=== PATIENT | male | born 1930 | race African-American/Black ===

== ENCOUNTER 2018-04-20 17:29 | Inpatient (IN) | payer MEDICARE, BC ==
[2018-04-20 19:35] LABS: #Eosinphils 0.1 thou/uL (0.0-0.7); #Lymphocytes 1.1 thou/uL (1.20-3.40); #Monocytes 1.3 thou/uL (0.11-0.59); #Neutrophils 6.4 thou/uL (1.40-6.50); %Basophils 0.1 % (0.0-1.0); %Eosinophils 1.4 % (0.0-10.0); %Lymphocytes 12.3 % (21.0-51.0); %Monocytes 14.4 % (0.0-10.0); %Neutrophils 71.8 % (42.0-75.0); Hemoglobin 10.6 g/dL (14.0-18.0); Mean Corpuscular HGB CONC 31.8 g/dL (32.0-36.0); Mean Corpuscular Hemoglobin 33.7 pg (27.0-31.0); Mean Platelet Volume 8.2 fL (7.4-10.4); Platelet Count 271 thou/uL (130-400); RBC Distribution Width 12.8 % (11.5-14.5); Red Blood Cell (RBC) Count 3.15 mill/uL (4.70-6.10); White Blood Cell (WBC) Count 8.9 thou/uL (4.8-10.8)
[2018-04-20 19:49] LABS: MDiff Complete? YES; Macrocytosis SLIGHT = 6-15 cells (100X) (0-5/hpf); PLT Morphology Comment Appears Adequate; Polychromasia SLIGHT = 2-3 cells (100X) (0-2/hpf)
[2018-04-20 19:57] LABS: Anion Gap 9 mmol/L (10-20); BUN (Urea Nitrogen) 16 mg/dL (8.4-25.7); Calc. Creatinine Clearance 0 mL/min (70-130); Calcium 9.3 mg/dL (7.8-10.44); Carbon Dioxide 32 mmol/L (23-31); Chloride 107 mmol/L (98-107); Estimated GFR-MDRD Greater than 90; Glucose 124 mg/dL (83-110); Potassium 3.9 mmol/L (3.5-5.1); Sodium 144 mmol/L (136-145)
--- NOTE | 2018-04-20 21:03 | RAD ---
RADIOGRAPH LUMBAR SPINE 3 VIEWS: 04/20/18 HISTORY: 87-year-old male with low back pain and multiple skin lesions over the sacrum and hips. COMPARISON: None. FINDINGS: Large amount of stool in the rectum. Multiple surgical clips in the pelvis. Five lumbar type vertebrae. Vertebral body heights are maintained. Transitional level at lumbosacral junction. Moderate to severe disc space narrowing at lumbosacral junction, at least partially developmental in nature. Moderate disc space narrowing at L3-4. No major spondylolisthesis. IMPRESSION: 1. Status post prostatectomy and iliac chain lymph node dissection. 2. Transitional level at lumbosacral junction. 3. Modest degenerative disc changes. 4. No compression fracture. STNA [] POS: ALMA
[2018-04-20 21:04] LABS: Bilirubin Small (Negative); Blood, Urine Large (Negative); Clarity CLOUDY (Clear); Glucose, Urine (Dipstick) Negative (Negative); Leukocyte Moderate (Negative); Nitrite Negative (Negative); Protein, Urine (Dipstick) 30 mg/dL (Neg-Trace); Specific Gravity, Urine 1.023 (1.002-1.036); pH, Urine 5.5 (5.0-9.0)
[2018-04-20 21:08] LABS: Bacteria/HPF None Seen HPF (None Seen); RBC/HPF GREATER THAN 50-TNTC HPF (0-3); Squamous Epithelial 0-3 HPF (0-3)
[2018-04-20 21:10] LABS: Pathc Cast-AUWi Flag 5.23 (0-2.49); Yeast-AUWi Flag 43.7 (0-25.0)
[2018-04-20 21:18] LABS: Hyaline Casts/LPF 0-3 HYALINE CAST LPF (0-3 Hyaline); Transitional Epithelial 0-3 HPF (0-3)
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
[2018-04-20] MEDS ORDERED: Piperacillin/Tazobactam 3.375 GM VIAL ONE (21:44)
[2018-04-20] MEDS ORDERED: Milk Of Magnesia 30 ML UDCUP PO PRN (23:31)
[2018-04-20] MEDS ORDERED: Bisacodyl 5 MG TAB PO PRN (23:31)
[2018-04-20] MEDS ORDERED: Mag-Al 1200 mg/1200 mg/30 ML UDCUP PO PRN (23:31)
[2018-04-20] MEDS ORDERED: Acetaminophen 325 MG TAB PO PRN (23:31)
[2018-04-21] MEDS: Sodium Chloride 0.9% 1,000 ML IV SCH ×2 (00:49→16:36)
--- NOTE | 2018-04-21 02:02 | PDOC.EVN ---
Event Note - Event Note Event Note: Advanced care planning was discussed in detail with the patient's daughter during the admission interview. The discussion was in reference to his advanced dementia,severe decubitus ulcers, and malnutrition and recent rapid decline in his overall condition. His daughter says she has considered Hospice care for her father but did not feel he was quite" at that stage yet". She has discussed this with Dr. Alejandro as well. She says she is aware of his condition, and the overall poor prognosis. We also discussed code status, and she would like for her father to remain a FULL CODE. She says she would not want him on prolonged life support however. She would like to see if his decubitus ulcers will stabilize, and if not then she will consider Hospice. ACP time 20minutes.
[2018-04-21] MEDS: Piperacillin/Tazobactam 2.25 GM in Sodium Chloride 0.9% 100 ML IVPB SCH ×4 (04:30→22:16)
[2018-04-21 04:55] LABS: ALT (SGPT) 12 U/L (8-55); AST (SGOT) 19 U/L (5-34); Albumin 1.9 g/dL (3.4-4.8); Alkaline Phosphatase 77 U/L (40-150); Anion Gap 8 mmol/L (10-20); BUN (Urea Nitrogen) 15 mg/dL (8.4-25.7); Bilirubin, Total 0.8 mg/dL (0.2-1.2); Calc. Creatinine Clearance 66 mL/min (70-130); Calcium 9.3 mg/dL (7.8-10.44); Carbon Dioxide 33 mmol/L (23-31); Chloride 109 mmol/L (98-107); Estimated GFR-MDRD Greater than 90; Globulin 4.1 g/dL (2.4-3.5); Glucose 112 mg/dL (83-110); Sodium 146 mmol/L (136-145)
--- NOTE | 2018-04-21 05:24 | HP ---
PRIMARY CARE PHYSICIAN: Dr. Nathan Alejandro. CHIEF COMPLAINT: Worsening decubitus ulcers. HISTORY OF PRESENT ILLNESS: Mr. Monsalve has advanced dementia and is unable to give any history. He is essentially noncommunicative. His daughter is at the bedside and is the historian. She says that Nancy Monsalve developed decubitus ulcers back in February and since then he has been getting home health where t hey have come in and perform dressing changes twice every other day. She says that back in March, the wounds started to get worse and then on Tuesday, they got worse and very rapidly. She says that they developed an eschar and an odor and she brought him in to see his primary care physician. His prima ry care physician was concerned that there could be infection to the bone and recommended that he com e to the emergency room for evaluation. In the ER, he was found to have several large decubitus ulce rs, which have a dark eschar on them and are essentially unstageable primarily on the bony prominence s in the pelvic region, on the sacrum and lower back and ischiums. He is being admitted for further evaluation. The patient's daughter says that there has not been any fevers or chills that he is awar e of. He has maintained a good appetite, but she says he has rapidly lost weight in the last few tue. She says that the level of dementia is about the same, he sometimes has good days and bad days, and up until recently, they were able to sit up in the chair and he seemed to be more or less comfor table. She says that Dr. Alejandro had discussed hospice with her before, but she decided on home [facility] hospital because she did not think that he was quite that far advanced. REVIEW OF SYSTEMS: Unobtainable as the patient has advanced dementia. PAST MEDICAL HISTORY: Significant for dementia, prostate cancer. He has severe vision impairment an d blindness and hypertension. PAST SURGICAL HISTORY: He has had a prostatectomy, bilateral eye surgeries. ALLERGIES: No known drug allergies. SOCIAL HISTORY: He is a nonsmoker, nondrinker. He lives with his daughter. CODE STATUS: FULL CODE; however, if he were on life support for a certain amount of time, then they would consider withdrawing care, but he is a FULL CODE. FAMILY HISTORY: Significant for diabetes mellitus and cerebrovascular disease. MEDICATIONS: Include terazosin 2 mg at bedtime, Aleve, levobunolol, prednisolone, and brimonidine ey edrops. PHYSICAL EXAMINATION: GENERAL: He is awake. He appears cachectic. He is extremely thin. He is not oriented or we are un able to assess orientation due to advanced dementia. VITAL SIGNS: On admission, the blood pressure was 125/56, heart rate 87, respiratory rate of 16, and he is afebrile. HEENT: The pupils are actually large and sluggishly reactive. He has some mild exudate in the eyes, but no conjunctival injection and the sclerae are anicteric. Throat: He has poor dentition and dry mucous membranes. NECK: No adenopathy, no bruits. LUNGS: Clear to auscultation. There is no wheezing, no rales. CARDIOVASCULAR: He has a normal S1, S2. There was no S3 or S4. No murmurs, clicks or rubs. ABDOMEN: Soft, nontender, nondistended. Positive for bowel sounds. EXTREMITIES: He has got severe muscle wasting. There is no edema except on the dorsum of the feet a nd he has got large decubitus ulcers on both of the ischiums as well as the sacral area and on both h eels, all of which have dark eschar. He also has some contractures of the lower extremities. NEUROLOGIC: He is very difficult to assess due to the advanced dementia, but he does move all of his extremities. LABORATORY AND DIAGNOSTIC DATA: White blood cell count was 8.9, hemoglobin 10.6, hematocrit is 33.3, platelet count is 271,000. Sodium 144, potassium 3.9, chloride is 107, CO2 is 32, BUN of 10, creati nine is 0.59, glucose is 124. Urinalysis shows large blood, moderate leukocyte esterase, too numerou s to count wbc's. He had an x-ray of the pelvis showing some mild osteoarthrosis of both hips and a large amount of stool throughout the colon. There are no gross destructive osseous lesions identifie d. He also had an x-ray of the lumbar spine, showing some degenerative disk changes. ASSESSMENT AND PLAN: This is a pleasant 87-year-old gentleman who is being admitted for severe decub itus ulcers, which has failed outpatient treatment. He also has significant malnutrition, at least m oderate malnutrition, as well as advanced dementia. He will be evaluated by Wound Care. We will als o get a CT scan of the pelvis to determine whether or not there is osteomyelitis. He will need a nut ritional consult and will also get an albumin and prealbumin, it is again suspect [id number] malnutrition. The patient's daughter is wondering if the patient would benefit from a skilled nursin g stay for wound care. She says he wanted to try this for a week or two to see if the wounds could b e stabilized and if not, then she would consider hospice. Therefore, we will go ahead and get a case management consult.
[2018-04-21] MEDS ORDERED: Piperacillin/Tazobactam 3.375 GM in Sodium Chloride 0.9% 100 ML IVPB SCH (06:00)
[2018-04-21] MEDS ORDERED: Prevnar 13-Val Conj/PF 0.5 ML SYRINGE IM ONE (09:00)
[2018-04-21] MEDS ORDERED: Famotidine 20 MG TAB PO SCH (09:00)
[2018-04-21] MEDS ORDERED: Vancomycin HCl 1 GM in Premix Bag 1 BAG IVPB SCH ×2 (09:00→21:00)
[2018-04-21] MEDS: Enoxaparin Sodium 30 MG/0.3 ML SYRINGE SC SCH (09:06)
[2018-04-21 09:25] VITALS: BMI 16.2
--- NOTE | 2018-04-21 09:37 | CT ---
CT PELVIS NONCONTRAST: HISTORY: Decubitus ulcer. Possible osteomyelitis. COMPARISON: 05/02/14. FINDINGS: Osseous structures are demineralized. Mild degenerative changes of the hips. More prominent degener ative changes lower lumbar spine. No aggressive osseous destruction is apparent. Bulky osteophytosi s about the sacroiliac joints. Metallic clips in the pelvis have the appearance of prior prostate clemons rgery. Urinary bladder is incompletely distended. The abdomen was not imaged. A large amount of stool is apparent within the colon and rectum. There is fecal distention of the rectum of 2.84 cm. Rectal wall is somewhat thickened considering the degr ee of distention. Small pockets of gas are present throughout the circumference of the rectal wall. Stranding throughout the subcutaneous tissues precludes adequate evaluation for ulceration. No signi ficant fluid pockets are apparent. IMPRESSION: 1. No aggressive osseous obstruction to suggest advanced osteomyelitis. MRI would be more sensitive if needed for evaluation of bone marrow edema. 2. Osteoporosis. Osteoarthritis. 3. Fecal distention of the rectum with wall thickening and pneumatosis. Clinical correlation regard ing other signs and symptoms of stercoral proctitis is required. POS: ALMA
[2018-04-21] MEDS: Famotidine 20 MG TAB PO SCH (22:14)
[2018-04-22] MEDS: Sodium Chloride 0.9% 1,000 ML IV SCH ×2 (05:05→18:25)
[2018-04-22] MEDS: Piperacillin/Tazobactam 2.25 GM in Sodium Chloride 0.9% 100 ML IVPB SCH ×2 (05:06→10:00)
[2018-04-22] MEDS: Enoxaparin Sodium 30 MG/0.3 ML SYRINGE SC SCH (07:55)
[2018-04-22] MEDS: Famotidine 20 MG TAB PO SCH ×2 (07:56→21:04)
--- NOTE | 2018-04-22 12:26 | PDOC.PN ---
- Subjective Encounter Start Date: 04/21/18 Encounter Start Time: 08:00 -: old records requested/rev Pt seen and examined,chart reviewe din its entirety, thsi is my first visit with this patient. Pt not conversive at all. no acute events, no family at bedside at present no F/C, no N/V/d/c, no CP, no distress - Objective Resuscitation Status: Resuscitation Status FULL:Full Resuscitation MAR Reviewed: Yes Vital Signs & Weight: Vital Signs (12 hours) Temp Pulse Resp BP Pulse Ox 04/22/18 08:00 97.7 F 86 20 96 04/22/18 07:12 97.7 F 86 20 127/73 94 L Weight Admit Weight 106 lb 8 oz Weight 106 lb 8 oz I&O: 04/21/18 04/22/18 04/23/18 06:59 06:59 06:59 Intake Total 800 1055 240 Output Total 1 2 Balance 799 1053 240 Result Diagrams: 04/20/18 19:23 04/21/18 04:15 Radiology Reviewed by me: Yes EKG Reviewed by me: Yes Phys Exam - Physical Examination Constitutional: NAD cachectic, frail, non-talking, contracted HEENT: PERRLA, moist MMs, sclera anicteric Neck: no nodes, no JVD, supple, full ROM Respiratory: no wheezing, no rales, no rhonchi, clear to auscultation bilateral Cardiovascular: RRR, no significant murmur, no rub Gastrointestinal: soft, non-tender, no distention, positive bowel sounds Musculoskeletal: no edema, pulses present Lymphatic: no nodes Skin: no rash, normal turgor, cap refill <2 seconds Dx/Plan (1) 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 (2) Moderate protein-calorie malnutrition Code(s): E44.0 - MODERATE PROTEIN-CALORIE MALNUTRITION Status: Chronic (3) Pressure ulcer of hip, left, unstageable Code(s): L89.220 - PRESSURE ULCER OF LEFT HIP, UNSTAGEABLE Status: Chronic (4) Pressure ulcer of hip, right, unstageable Code(s): L89.210 - PRESSURE ULCER OF RIGHT HIP, UNSTAGEABLE Status: Chronic (5) Encephalopathy Code(s): G93.40 - ENCEPHALOPATHY, UNSPECIFIED Status: Acute (6) Dementia Code(s): F03.90 - UNSPECIFIED DEMENTIA WITHOUT BEHAVIORAL DISTURBANCE Status: Chronic Qualifiers: Dementia type: unspecified type Dementia behavioral disturbance: without behavioral disturbance Qualified Code(s): F03.90 - Unspecified dementia without behavioral disturbance (7) Hypertension Code(s): I10 - ESSENTIAL (PRIMARY) HYPERTENSION Status: Chronic Qualifiers: Hypertension type: essential hypertension Qualified Code(s): I10 - Essential (primary) hypertension - Plan cont current plan of care, plan discussed w/ family * . local wound care, IV fluids, deitary consult. EHR to see if qualifies for inpatient status
--- NOTE | 2018-04-22 12:34 | PDOC.PN ---
- Subjective Encounter Start Date: 04/22/18 Encounter Start Time: 10:00 Pt answering some questions with repeated questioning, Oriented ot perosn only. Ate 50% of meal. Wound care in progress. Pt changed to inpatient status - Objective Resuscitation Status: Resuscitation Status FULL:Full Resuscitation MAR Reviewed: Yes Vital Signs & Weight: Vital Signs (12 hours) Temp Pulse Resp BP Pulse Ox 04/22/18 08:00 97.7 F 86 20 96 04/22/18 07:12 97.7 F 86 20 127/73 94 L Weight Admit Weight 106 lb 8 oz Weight 106 lb 8 oz I&O: 04/21/18 04/22/18 04/23/18 06:59 06:59 06:59 Intake Total 800 1055 240 Output Total 1 2 Balance 799 1053 240 Result Diagrams: 04/20/18 19:23 04/21/18 04:15 Phys Exam - Physical Examination Constitutional: NAD HEENT: PERRLA, moist MMs, sclera anicteric, TM's clear Neck: no nodes, no JVD, supple, full ROM Respiratory: no wheezing, no rales, no rhonchi, clear to auscultation bilateral Cardiovascular: RRR, no significant murmur, no rub Gastrointestinal: soft, non-tender, no distention, positive bowel sounds Musculoskeletal: no edema, pulses present Lymphatic: no nodes Skin: no rash, normal turgor, cap refill <2 seconds Dx/Plan (1) 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 (2) Moderate protein-calorie malnutrition Code(s): E44.0 - MODERATE PROTEIN-CALORIE MALNUTRITION Status: Chronic (3) Pressure ulcer of hip, left, unstageable Code(s): L89.220 - PRESSURE ULCER OF LEFT HIP, UNSTAGEABLE Status: Chronic (4) Pressure ulcer of hip, right, unstageable Code(s): L89.210 - PRESSURE ULCER OF RIGHT HIP, UNSTAGEABLE Status: Chronic (5) Encephalopathy Code(s): G93.40 - ENCEPHALOPATHY, UNSPECIFIED Status: Acute (6) Dementia Code(s): F03.90 - UNSPECIFIED DEMENTIA WITHOUT BEHAVIORAL DISTURBANCE Status: Chronic Qualifiers: Dementia type: unspecified type Dementia behavioral disturbance: without behavioral disturbance Qualified Code(s): F03.90 - Unspecified dementia without behavioral disturbance (7) Hypertension Code(s): I10 - ESSENTIAL (PRIMARY) HYPERTENSION Status: Chronic Qualifiers: Hypertension type: essential hypertension Qualified Code(s): I10 - Essential (primary) hypertension - Plan cont current plan of care, plan discussed w/ family, PT/OT, psychiatric social worker * . stop abx, no osteo. no abscess. wound do not look infected. Need enzymatic and or sharp debridement.
[2018-04-23] MEDS: Sodium Chloride 0.9% 1,000 ML IV SCH (00:17)
[2018-04-23 05:40] LABS: #Lymphocytes 0.9 thou/uL (1.20-3.40); #Monocytes 0.9 thou/uL (0.11-0.59); #Neutrophils 5.2 thou/uL (1.40-6.50); %Basophils 0.2 % (0.0-1.0); %Eosinophils 0.6 % (0.0-10.0); %Lymphocytes 12.6 % (21.0-51.0); %Monocytes 12.9 % (0.0-10.0); %Neutrophils 73.7 % (42.0-75.0); Hemoglobin 9.1 g/dL (14.0-18.0); Mean Corpuscular HGB CONC 31.7 g/dL (32.0-36.0); Mean Corpuscular Hemoglobin 32.9 pg (27.0-31.0); Mean Platelet Volume 7.5 fL (7.4-10.4); Platelet Count 261 thou/uL (130-400); RBC Distribution Width 12.7 % (11.5-14.5); Red Blood Cell (RBC) Count 2.78 mill/uL (4.70-6.10)
[2018-04-23 06:01] LABS: ALT (SGPT) 8 U/L (8-55); AST (SGOT) 13 U/L (5-34); Albumin 1.8 g/dL (3.4-4.8); Alkaline Phosphatase 64 U/L (40-150); Anion Gap 8 mmol/L (10-20); BUN (Urea Nitrogen) 12 mg/dL (8.4-25.7); Bilirubin, Total 0.6 mg/dL (0.2-1.2); Calc. Creatinine Clearance 70 mL/min (70-130); Calcium 8.4 mg/dL (7.8-10.44); Carbon Dioxide 28 mmol/L (23-31); Chloride 108 mmol/L (98-107); Estimated GFR-MDRD Greater than 90; Globulin 3.7 g/dL (2.4-3.5); Glucose 89 mg/dL (83-110); Magnesium 1.8 mg/dL (1.6-2.6); Potassium 3.4 mmol/L (3.5-5.1); Protein, Total 5.5 g/dL (5.8-8.1); Sodium 141 mmol/L (136-145)
[2018-04-23] MEDS ORDERED: VANCOMYCIN IVPB PRN (08:50)
[2018-04-23] MEDS ORDERED: hydrALAZINE 20 MG/ML VIAL SLOW IVP PRN (08:51)
[2018-04-23] MEDS ORDERED: Diabetic Tussin 200 MG/10 ML UDCUP PO PRN (08:51)
[2018-04-23] MEDS ORDERED: Eucerin (Mineral Oil/Petrolatum,White) 30 gm Jar TOP PRN (08:51)
[2018-04-23] MEDS ORDERED: Artificial Tears 18 DROP/0.9 ML EA EYE PRN (08:51)
[2018-04-23] MEDS ORDERED: Loperamide HCl 2 MG CAP PO PRN (08:51)
[2018-04-23] MEDS ORDERED: Loratadine 10 MG TAB PO PRN (08:51)
[2018-04-23] MEDS ORDERED: Ondansetron HCl/PF 4 MG/2 ML Vial IVP PRN (08:51)
[2018-04-23] MEDS ORDERED: Ondansetron ODT 4 MG TAB PO PRN (08:51)
[2018-04-23] MEDS ORDERED: Chloraseptic Spray 180 ml Bottle PO PRN (08:51)
[2018-04-23] MEDS ORDERED: Temazepam 15 MG CAP PO PRN (08:51)
[2018-04-23] MEDS ORDERED: Sodium Chloride 0.65% Nasal 44 ML BOT EA NARE PRN (08:51)
[2018-04-23] MEDS: Famotidine 20 MG TAB PO SCH ×2 (09:34→22:04)
[2018-04-23] MEDS: Enoxaparin Sodium 30 MG/0.3 ML SYRINGE SC SCH (09:35)
[2018-04-23] MEDS ORDERED: Potassium Chloride 20 MEQ TAB PO SCH (10:00)
[2018-04-23] MEDS: Saccharomyces boulardii 250 MG CAP PO SCH (10:06)
[2018-04-23] MEDS: Cyanocobalamin (Vitamin B-12) 1,000 MCG TAB PO SCH (10:06)
[2018-04-23] MEDS: HYDROcodone/Acetaminophen 5/325 mg Tablet PO PRN (10:07)
[2018-04-23] MEDS: Folic Acid 1 MG TAB PO SCH (10:07)
[2018-04-23] MEDS: prednisoLONE 1% Ophth Susp 5 ml Bottle EA EYE SCH ×2 (10:14→22:04)
[2018-04-23] MEDS: Brimonidine Tartrate 0.2% Ophth Soln 5 ml Bottle EA EYE SCH ×2 (10:21→22:04)
[2018-04-23] MEDS: Vancomycin HCl 750 MG in Sodium Chloride 0.9% 250 ML 250 ML IVPB SCH (11:34)
[2018-04-23] MEDS: Piperacillin/Tazobactam 2.25 GM in Sodium Chloride 0.9% 100 ML IVPB SCH ×2 (11:40→17:10)
--- NOTE | 2018-04-23 11:52 | PDOC.PN ---
- Subjective Encounter Start Date: 04/23/18 Encounter Start Time: 08:30 -: non-verbal, old records requested/rev Patient seen and examined for infected pressure ulcer. No overnight events - Objective MAR Reviewed: Yes Vital Signs & Weight: Vital Signs (12 hours) Temp Pulse Resp BP Pulse Ox 04/23/18 07:18 97.5 F L 75 16 128/60 97 I&O: 04/22/18 04/23/18 04/24/18 06:59 06:59 06:59 Intake Total 1224 Balance 1224 Result Diagrams: 04/23/18 05:19 04/23/18 05:19 Phys Exam - Physical Examination Constitutional: NAD cachectic HEENT: PERRLA, moist MMs, sclera anicteric Neck: no JVD, supple Respiratory: no wheezing, no rales, no rhonchi Cardiovascular: RRR, no significant murmur, no rub Gastrointestinal: soft, non-tender, no distention, positive bowel sounds Musculoskeletal: no edema, pulses present unable to assess Lymphatic: no nodes Deviation from normal: unable to assess Deviation from normal: decubitus ulcer with dressing Dx/Plan (1) Hypokalemia Code(s): E87.6 - HYPOKALEMIA Status: Acute (2) Dementia Code(s): F03.90 - UNSPECIFIED DEMENTIA WITHOUT BEHAVIORAL DISTURBANCE Status: Chronic Qualifiers: Dementia type: unspecified type Dementia behavioral disturbance: without behavioral disturbance Qualified Code(s): F03.90 - Unspecified dementia without behavioral disturbance (3) 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 (4) Hypertension Code(s): I10 - ESSENTIAL (PRIMARY) HYPERTENSION Status: Chronic Qualifiers: Hypertension type: essential hypertension Qualified Code(s): I10 - Essential (primary) hypertension (5) Macrocytic anemia Code(s): D53.9 - NUTRITIONAL ANEMIA, UNSPECIFIED Status: Chronic (6) Moderate protein-calorie malnutrition Code(s): E44.0 - MODERATE PROTEIN-CALORIE MALNUTRITION Status: Chronic (7) Pressure ulcer of hip, left, unstageable Code(s): L89.220 - PRESSURE ULCER OF LEFT HIP, UNSTAGEABLE Status: Chronic (8) Pressure ulcer of hip, right, unstageable Code(s): L89.210 - PRESSURE ULCER OF RIGHT HIP, UNSTAGEABLE Status: Chronic - Plan cont current plan of care, continue antibiotics, clinical social work therapist * add folic acid, vitamin B12 * replace potassium * continue vancomycin and zosyn * wound care * add supplement with forrest with ensure * medication reviewed as below * symptomatic treatment. Review of Systems - Review of Systems Other: unable to review due to non verbal status - Medications/Allergies Allergies/Adverse Reactions: Allergies Allergy/AdvReac Type Severity Reaction Status Date / Time No Known Drug Allergies Allergy Verified 07/12/14 21:15 Medications: Current Medications Acetaminophen (Tylenol) 650 mg PO Q4H PRN PRN Reason: Headache/Fever or Pain Hydrocodone Bitart/Acetaminophen (Randolph 5/325) 1 tab PO Q4H PRN PRN Reason: Moderate Pain (4-6) Last Admin: 04/23/18 10:07 Dose: 1 tab Al Hydroxide/Mg Hydroxide (Maalox) 30 ml PO Q6H PRN PRN Reason: Heartburn or Indigestion Artificial Tears (Tears Naturale) 0 drop EA EYE PRN PRN PRN Reason: Dry Eyes Bisacodyl (Dulcolax) 10 mg PO DAILYPRN PRN PRN Reason: Constipation Brimonidine Tartrate (Alphagan 0.2% Ophth Soln) 1 drop EA EYE BID [facility] Last Admin: 04/23/18 10:21 Dose: Not Given Cyanocobalamin (Vitamin B-12) 1,000 mcg PO DAILY [facility] Last Admin: 04/23/18 10:06 Dose: 1,000 mcg Enoxaparin Sodium (Lovenox) 30 mg SC 0900 [facility] Last Admin: 04/23/18 09:35 Dose: 30 mg Famotidine (Pepcid) 20 mg PO BID [facility] Last Admin: 04/23/18 09:34 Dose: 20 mg Folic Acid (Folvite) 1 mg PO DAILY [facility] Last Admin: 04/23/18 10:07 Dose: 1 mg Guaifenesin (Robitussin Sf) 200 mg PO Q4H PRN PRN Reason: Cough Hydralazine HCl (Apresoline) 10 mg SLOW IVP Q4H PRN PRN Reason: Systolic BP > 180 Sodium Chloride (Normal Saline 0.9%) 1,000 mls @ 70 mls/hr IV .[id number] [facility] Last Admin: 04/23/18 00:17 Dose: 1,000 mls Piperacillin Sod/Tazobactam (Sod 2.25 gm/ Sodium Chloride) 100 mls @ 200 mls/ hr IVPB Q6HR [facility] Last Admin: 04/23/18 11:40 Dose: 100 mls Vancomycin HCl 750 mg/ Sodium (Chloride) 250 mls @ 250 mls/hr IVPB 1100 [facility] Last Admin: 04/23/18 11:34 Dose: 250 mls Lactulose (Lactulose) 20 gm PO DAILYPRN PRN PRN Reason: Constipation Loperamide HCl (Imodium) 2 mg PO PRN PRN PRN Reason: Diarrhea/Loose Stools Loratadine (Claritin) 10 mg PO DAILYPRN PRN PRN Reason: Sinus Symptoms Magnesium Hydroxide (Milk Of Magnesium) 30 ml PO DAILYPRN PRN PRN Reason: Constipation Mineral Oil/White Petrolatum (Eucerin Cream) 0 gm TOP BIDPRN PRN PRN Reason: Dry Skin Miscellaneous Medication (Pharmacy To Dose) 1 each IVPB DAILYPRN PRN PRN Reason: LABS Ondansetron HCl (Zofran Odt) 4 mg PO Q6H PRN PRN Reason: Nausea/Vomiting Ondansetron HCl (Zofran) 4 mg IVP Q6H PRN PRN Reason: /Vomiting Phenol (Chloraseptic Oxford 180 Ml Bot) 0 ml PO PRN PRN PRN Reason: Sore Throat Potassium Chloride (K-Dur) 40 meq PO 1000 [facility] Stop: 04/23/18 12:00 Last Admin: 04/23/18 10:06 Dose: 40 meq Prednisolone Acetate (Econopred Plus 1% Opth Susp) 1 drop EA EYE BID [facility] Last Admin: 04/23/18 10:14 Dose: 1 drp Saccharomyces Boulardii (Florastor) 250 mg PO DAILY [facility] Last Admin: 04/23/18 10:06 Dose: 250 mg Sodium Chloride (Camas Nasal Oxford 0.65%) 0 ml EA NARE QIDPRN PRN PRN Reason: Nasal Congestion Temazepam (Restoril) 15 mg PO HSPRN PRN PRN Reason: Insomnia Terazosin HCl (Hytrin) 2 mg PO BID-[facility] Timolol Maleate (Timoptic 0.5% Ophth Soln) 1 drop EA EYE BID [facility]
[2018-04-23] MEDS: Terazosin HCl 1 MG CAP PO SCH (17:10)
[2018-04-23] MEDS: Timolol 0.5% Ophth Soln 5 ml Bottle EA EYE SCH (22:05)
[2018-04-24] MEDS: Piperacillin/Tazobactam 2.25 GM in Sodium Chloride 0.9% 100 ML IVPB SCH ×4 (00:44→17:19)
[2018-04-24] MEDS: Sodium Chloride 0.9% 1,000 ML IV SCH ×2 (01:25→09:25)
[2018-04-24] MEDS: Saccharomyces boulardii 250 MG CAP PO SCH (07:48)
[2018-04-24] MEDS: prednisoLONE 1% Ophth Susp 5 ml Bottle EA EYE SCH ×2 (07:50→20:21)
[2018-04-24] MEDS: Famotidine 20 MG TAB PO SCH ×2 (07:51→20:22)
[2018-04-24] MEDS: Cyanocobalamin (Vitamin B-12) 1,000 MCG TAB PO SCH (07:51)
[2018-04-24] MEDS: Folic Acid 1 MG TAB PO SCH (07:53)
[2018-04-24] MEDS: Enoxaparin Sodium 30 MG/0.3 ML SYRINGE SC SCH (07:54)
[2018-04-24] MEDS: Timolol 0.5% Ophth Soln 5 ml Bottle EA EYE SCH ×2 (07:55→20:17)
[2018-04-24] MEDS: Terazosin HCl 1 MG CAP PO SCH ×2 (07:57→17:06)
[2018-04-24] MEDS: Brimonidine Tartrate 0.2% Ophth Soln 5 ml Bottle EA EYE SCH ×2 (08:00→20:26)
[2018-04-24] MEDS: HYDROcodone/Acetaminophen 5/325 mg Tablet PO PRN (10:15)
[2018-04-24] MEDS: Vancomycin HCl 750 MG in Sodium Chloride 0.9% 250 ML 250 ML IVPB SCH (10:16)
--- NOTE | 2018-04-24 10:30 | PDOC.PN ---
- Subjective Encounter Start Date: 04/24/18 Encounter Start Time: 08:30 Patient seen and examined for decubitus ulcer, No overnight events - Objective MAR Reviewed: Yes Vital Signs & Weight: Vital Signs (12 hours) Temp Pulse Resp BP BP Pulse Ox 04/24/18 08:00 98.0 F 87 20 96 04/24/18 07:55 87 118/69 04/24/18 07:11 98.0 F 87 20 118/69 96 I&O: 04/23/18 04/24/18 04/25/18 06:59 06:59 06:59 Intake Total 1224 2790 Balance 1224 2790 Result Diagrams: 04/23/18 05:19 04/23/18 05:19 Phys Exam - Physical Examination Constitutional: NAD HEENT: PERRLA, moist MMs, sclera anicteric Neck: no JVD, supple Respiratory: no wheezing, no rales, no rhonchi Cardiovascular: RRR, no significant murmur, no rub Gastrointestinal: soft, non-tender, no distention, positive bowel sounds Musculoskeletal: no edema, pulses present unable to assess Deviation from normal: unable to assess Deviation from normal: decubitus ulcer with dressing Dx/Plan (1) Hypokalemia Code(s): E87.6 - HYPOKALEMIA Status: Acute (2) Dementia Code(s): F03.90 - UNSPECIFIED DEMENTIA WITHOUT BEHAVIORAL DISTURBANCE Status: Chronic Qualifiers: Dementia type: unspecified type Dementia behavioral disturbance: without behavioral disturbance Qualified Code(s): F03.90 - Unspecified dementia without behavioral disturbance (3) 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 (4) Hypertension Code(s): I10 - ESSENTIAL (PRIMARY) HYPERTENSION Status: Chronic Qualifiers: Hypertension type: essential hypertension Qualified Code(s): I10 - Essential (primary) hypertension (5) Macrocytic anemia Code(s): D53.9 - NUTRITIONAL ANEMIA, UNSPECIFIED Status: Chronic (6) Moderate protein-calorie malnutrition Code(s): E44.0 - MODERATE PROTEIN-CALORIE MALNUTRITION Status: Chronic (7) Pressure ulcer of hip, left, unstageable Code(s): L89.220 - PRESSURE ULCER OF LEFT HIP, UNSTAGEABLE Status: Chronic (8) Pressure ulcer of hip, right, unstageable Code(s): L89.210 - PRESSURE ULCER OF RIGHT HIP, UNSTAGEABLE Status: Chronic - Plan cont current plan of care, continue antibiotics, healthcare social worker * continue current IV antibiotics * wound care * nutritional support * palliative care consult * medication reviewed as below * symptomatic treatment. Review of Systems - Review of Systems Other: unable to review due to his baseline cognitive deficit - Medications/Allergies Allergies/Adverse Reactions: Allergies Allergy/AdvReac Type Severity Reaction Status Date / Time No Known Drug Allergies Allergy Verified 07/12/14 21:15 Medications: Current Medications Acetaminophen (Tylenol) 650 mg PO Q4H PRN PRN Reason: Headache/Fever or Pain Hydrocodone Bitart/Acetaminophen ([place] 5/325) 1 tab PO Q4H PRN PRN Reason: Moderate Pain (4-6) Last Admin: 04/24/18 10:15 Dose: 1 tab Al Hydroxide/Mg Hydroxide (Maalox) 30 ml PO Q6H PRN PRN Reason: Heartburn or Indigestion Artificial Tears (Tears Naturale) 0 drop EA EYE PRN PRN PRN Reason: Dry Eyes Bisacodyl (Dulcolax) 10 mg PO DAILYPRN PRN PRN Reason: Constipation Brimonidine Tartrate (Alphagan 0.2% Ophth Soln) 1 drop EA EYE BID [facility] Last Admin: 04/24/18 08:00 Dose: 1 drop Cyanocobalamin (Vitamin B-12) 1,000 mcg PO DAILY [facility] Last Admin: 04/24/18 07:51 Dose: 1,000 mcg Enoxaparin Sodium (Lovenox) 40 mg SC 0900 [facility] Famotidine (Pepcid) 20 mg PO BID [facility] Last Admin: 04/24/18 07:51 Dose: 20 mg Folic Acid (Folvite) 1 mg PO DAILY [facility] Last Admin: 04/24/18 07:53 Dose: 1 mg Guaifenesin (Robitussin Sf) 200 mg PO Q4H PRN PRN Reason: Cough Hydralazine HCl (Apresoline) 10 mg SLOW IVP Q4H PRN PRN Reason: Systolic BP > 180 Sodium Chloride (Normal Saline 0.9%) 1,000 mls @ 70 mls/hr IV .[id number] [facility] Last Admin: 04/24/18 09:25 Dose: 1,000 mls Piperacillin Sod/Tazobactam (Sod 2.25 gm/ Sodium Chloride) 100 mls @ 200 mls/ hr IVPB Q6HR [facility] Last Admin: 04/24/18 06:04 Dose: 100 mls Vancomycin HCl 750 mg/ Sodium (Chloride) 250 mls @ 250 mls/hr IVPB 1100 [facility] Last Admin: 04/24/18 10:16 Dose: 250 mls Lactulose (Lactulose) 20 gm PO DAILYPRN PRN PRN Reason: Constipation Loperamide HCl (Imodium) 2 mg PO PRN PRN PRN Reason: Diarrhea/Loose Stools Loratadine (Claritin) 10 mg PO DAILYPRN PRN PRN Reason: Sinus Symptoms Magnesium Hydroxide (Milk Of Magnesium) 30 ml PO DAILYPRN PRN PRN Reason: Constipation Mineral Oil/White Petrolatum (Eucerin Cream) 0 gm TOP BIDPRN PRN PRN Reason: Dry Skin Miscellaneous Medication (Pharmacy To Dose) 1 each IVPB DAILYPRN PRN PRN Reason: LABS Ondansetron HCl (Zofran Odt) 4 mg PO Q6H PRN PRN Reason: Nausea/Vomiting Ondansetron HCl (Zofran) 4 mg IVP Q6H PRN PRN Reason: /Vomiting Phenol (Chloraseptic [place] 180 Ml Bot) 0 ml PO PRN PRN PRN Reason: Sore Throat Prednisolone Acetate (Econopred Plus 1% Opth Susp) 1 drop EA EYE BID [facility] Last Admin: 04/24/18 07:50 Dose: 1 drp Saccharomyces Boulardii (Florastor) 250 mg PO DAILY [facility] Last Admin: 04/24/18 07:48 Dose: 250 mg Sodium Chloride ([place] Nasal [place] 0.65%) 0 ml EA NARE QIDPRN PRN PRN Reason: Nasal Congestion Temazepam (Restoril) 15 mg PO HSPRN PRN PRN Reason: Insomnia Terazosin HCl (Hytrin) 2 mg PO BID-[facility] Last Admin: 04/24/18 07:57 Dose: Not Given Timolol Maleate (Timoptic 0.5% Oph Soln) 1 drop EA EYE BID [facility] Last Admin: 04/24/18 07:55 Dose: 1 drop
[2018-04-25] MEDS: Piperacillin/Tazobactam 2.25 GM in Sodium Chloride 0.9% 100 ML IVPB SCH ×5 (00:32→19:53)
[2018-04-25] MEDS: Sodium Chloride 0.9% 1,000 ML IV SCH ×2 (05:39→16:17)
[2018-04-25] MEDS: Cyanocobalamin (Vitamin B-12) 1,000 MCG TAB PO SCH (08:55)
[2018-04-25] MEDS: Terazosin HCl 1 MG CAP PO SCH ×2 (08:55→16:16)
[2018-04-25] MEDS: Folic Acid 1 MG TAB PO SCH (08:55)
[2018-04-25] MEDS: Famotidine 20 MG TAB PO SCH ×2 (08:55→19:52)
[2018-04-25] MEDS: Saccharomyces boulardii 250 MG CAP PO SCH (08:55)
[2018-04-25] MEDS: Enoxaparin Sodium 40 MG/0.4 ML SYRINGE SC SCH (08:55)
[2018-04-25] MEDS: Timolol 0.5% Ophth Soln 5 ml Bottle EA EYE SCH ×2 (09:00→19:53)
[2018-04-25] MEDS: Brimonidine Tartrate 0.2% Ophth Soln 5 ml Bottle EA EYE SCH ×2 (09:00→19:53)
[2018-04-25] MEDS: prednisoLONE 1% Ophth Susp 5 ml Bottle EA EYE SCH ×2 (09:00→19:53)
[2018-04-25 10:23] LABS: #Eosinphils 0.1 thou/uL (0.0-0.7); #Monocytes 0.9 thou/uL (0.11-0.59); #Neutrophils 5.8 thou/uL (1.40-6.50); %Basophils 0.2 % (0.0-1.0); %Eosinophils 1.4 % (0.0-10.0); %Lymphocytes 12.6 % (21.0-51.0); %Monocytes 11.4 % (0.0-10.0); %Neutrophils 74.3 % (42.0-75.0); Hemoglobin 9.8 g/dL (14.0-18.0); Mean Corpuscular HGB CONC 31.9 g/dL (32.0-36.0); Mean Corpuscular Hemoglobin 33.3 pg (27.0-31.0); Mean Platelet Volume 7.1 fL (7.4-10.4); Platelet Count 236 thou/uL (130-400); RBC Distribution Width 12.7 % (11.5-14.5); Red Blood Cell (RBC) Count 2.93 mill/uL (4.70-6.10); White Blood Cell (WBC) Count 7.9 thou/uL (4.8-10.8)
[2018-04-25 10:35] LABS: Vancomycin, Trough 6.8 ug/mL
[2018-04-25 10:37] LABS: Anion Gap 10 mmol/L (10-20); BUN (Urea Nitrogen) 15 mg/dL (8.4-25.7); Calc. Creatinine Clearance 66 mL/min (70-130); Calcium 8.5 mg/dL (7.8-10.44); Carbon Dioxide 26 mmol/L (23-31); Chloride 111 mmol/L (98-107); Estimated GFR-MDRD Greater than 90; Glucose 117 mg/dL (83-110); Potassium 3.7 mmol/L (3.5-5.1); Sodium 143 mmol/L (136-145)
[2018-04-25] MEDS: Vancomycin HCl 750 MG in Sodium Chloride 0.9% 250 ML 250 ML IVPB SCH (11:25)
--- NOTE | 2018-04-25 12:15 | PDOC.PN ---
- Subjective Encounter Start Date: 04/25/18 Encounter Start Time: 07:45 -: non-verbal Patient seen and examined for decubitus ulcer. No new complaints. No overnight events - Objective MAR Reviewed: Yes Vital Signs & Weight: Vital Signs (12 hours) Temp Pulse Resp BP BP Pulse Ox 04/25/18 11:15 97.9 F 83 16 109/63 91 L 04/25/18 09:00 79 109/58 L 04/25/18 08:00 97.9 F 83 16 04/25/18 07:29 97.7 F 79 14 109/58 L 91 L Weight Admit Weight 106 lb 8 oz Weight 106 lb 8 oz I&O: 04/24/18 04/25/18 04/26/18 06:59 06:59 06:59 Intake Total 2790 2840 480 Balance 2790 2840 480 Result Diagrams: 04/25/18 10:10 04/25/18 10:10 Phys Exam - Physical Examination Constitutional: NAD HEENT: PERRLA, moist MMs, sclera anicteric Neck: no JVD, supple Respiratory: no wheezing, no rales, no rhonchi Cardiovascular: RRR, no significant murmur, no rub Gastrointestinal: soft, non-tender, no distention, positive bowel sounds Musculoskeletal: no edema, pulses present unable to assess Lymphatic: no nodes Deviation from normal: unable to assess Deviation from normal: decubitus ulcer with dressing Dx/Plan (1) Hypokalemia Code(s): E87.6 - HYPOKALEMIA Status: Acute (2) Dementia Code(s): F03.90 - UNSPECIFIED DEMENTIA WITHOUT BEHAVIORAL DISTURBANCE Status: Chronic Qualifiers: Dementia type: unspecified type Dementia behavioral disturbance: without behavioral disturbance Qualified Code(s): F03.90 - Unspecified dementia without behavioral disturbance (3) 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 (4) Hypertension Code(s): I10 - ESSENTIAL (PRIMARY) HYPERTENSION Status: Chronic Qualifiers: Hypertension type: essential hypertension Qualified Code(s): I10 - Essential (primary) hypertension (5) Macrocytic anemia Code(s): D53.9 - NUTRITIONAL ANEMIA, UNSPECIFIED Status: Chronic (6) Moderate protein-calorie malnutrition Code(s): E44.0 - MODERATE PROTEIN-CALORIE MALNUTRITION Status: Chronic (7) Pressure ulcer of hip, left, unstageable Code(s): L89.220 - PRESSURE ULCER OF LEFT HIP, UNSTAGEABLE Status: Chronic (8) Pressure ulcer of hip, right, unstageable Code(s): L89.210 - PRESSURE ULCER OF RIGHT HIP, UNSTAGEABLE Status: Chronic - Plan cont current plan of care, plan discussed w/ family, continue antibiotics, director social welfare * continue IV antibiotics in hospital, vancomycin and zosyn * on discharge doxycycline for mrsa wound infection * wound care * nutritional support * medication reviewed as below * symptomatic treatment * discussed with daughter * await placement. Review of Systems - Review of Systems Other: unable to review due to his baseline demented condition - Medications/Allergies Allergies/Adverse Reactions: Allergies Allergy/AdvReac Type Severity Reaction Status Date / Time No Known Drug Allergies Allergy Verified 07/12/14 21:15 Medications: Current Medications Acetaminophen (Tylenol) 650 mg PO Q4H PRN PRN Reason: Headache/Fever or Pain Hydrocodone Bitart/Acetaminophen ([place] 5/325) 1 tab PO Q4H PRN PRN Reason: Moderate Pain (4-6) Last Admin: 04/24/18 10:15 Dose: 1 tab Al Hydroxide/Mg Hydroxide (Maalox) 30 ml PO Q6H PRN PRN Reason: Heartburn or Indigestion Artificial Tears (Tears Naturale) 0 drop EA EYE PRN PRN PRN Reason: Dry Eyes Bisacodyl (Dulcolax) 10 mg PO DAILYPRN PRN PRN Reason: Constipation Brimonidine Tartrate (Alph[place] 0.2% Oph Soln) 1 drop EA EYE BID [facility] Last Admin: 04/25/18 09:00 Dose: 1 drop Cyanocobalamin (Vitamin B-12) 1,000 mcg PO DAILY [facility] Last Admin: 04/25/18 08:55 Dose: 1,000 mcg Enoxaparin Sodium (Lovenox) 40 mg SC 0900 [facility] Last Admin: 04/25/18 08:55 Dose: 40 mg Famotidine (Pepcid) 20 mg PO BID [facility] Last Admin: 04/25/18 08:55 Dose: 20 mg Folic Acid (Folvite) 1 mg PO DAILY [facility] Last Admin: 04/25/18 08:55 Dose: 1 mg Guaifenesin (Robitussin Sf) 200 mg PO Q4H PRN PRN Reason: Cough Hydralazine HCl (Apresoline) 10 mg SLOW IVP Q4H PRN PRN Reason: Systolic BP > 180 Sodium Chloride (Normal Saline 0.9%) 1,000 mls @ 70 mls/hr IV .[id number] [facility] Last Admin: 04/25/18 05:39 Dose: 1,000 mls Piperacillin Sod/Tazobactam (Sod 2.25 gm/ Sodium Chloride) 100 mls @ 200 mls/ hr IVPB Q6HR [facility] Last Admin: 04/25/18 05:38 Dose: 100 mls Vancomycin HCl 1.25 gm/ Sodium (Chloride) 250 mls @ 166.667 mls/hr IVPB 1200 [facility] Lactulose (Lactulose) 20 gm PO DAILYPRN PRN PRN Reason: Constipation Loperamide HCl (Imodium) 2 mg PO PRN PRN PRN Reason: Diarrhea/Loose Stools Loratadine (Claritin) 10 mg PO DAILYPRN PRN PRN Reason: Sinus Symptoms Magnesium Hydroxide (Milk Of Magnesium) 30 ml PO DAILYPRN PRN PRN Reason: Constipation Mineral Oil/White Petrolatum (Eucerin Cream) 0 gm TOP BIDPRN PRN PRN Reason: Dry Skin Miscellaneous Medication (Pharmacy To Dose) 1 each IVPB DAILYPRN PRN PRN Reason: LABS Ondansetron HCl (Zofran Odt) 4 mg PO Q6H PRN PRN Reason: Nausea/Vomiting Ondansetron HCl (Zofran) 4 mg IVP Q6H PRN PRN Reason: /Vomiting Phenol (Chloraseptic [place] 180 Ml Bot) 0 ml PO PRN PRN PRN Reason: Sore Throat Prednisolone Acetate (Econopred Plus 1% Opth Susp) 1 drop EA EYE BID [facility] Last Admin: 04/25/18 09:00 Dose: 1 drp Saccharomyces Boulardii (Florastor) 250 mg PO DAILY [facility] Last Admin: 04/25/18 08:55 Dose: 250 mg Sodium Chloride ([place] Nasal [place] 0.65%) 0 ml EA NARE QIDPRN PRN PRN Reason: Nasal Congestion Temazepam (Restoril) 15 mg PO HSPRN PRN PRN Reason: Insomnia Terazosin HCl (Hytrin) 2 mg PO BID-[facility] Last Admin: 04/25/18 08:55 Dose: 2 mg Timolol Maleate (Timoptic 0.5% OphBoston Dispensaryn) 1 drop EA EYE BID [facility] Last Admin: 04/25/18 09:00 Dose: 1 drop
[2018-04-25] MEDS: Vancomycin HCl 1.25 GM in Sodium Chloride 0.9% 250 ML 250 ML IVPB SCH (13:01)
[2018-04-26] MEDS: Piperacillin/Tazobactam 2.25 GM in Sodium Chloride 0.9% 100 ML IVPB SCH ×4 (04:45→23:27)
[2018-04-26] MEDS: Saccharomyces boulardii 250 MG CAP PO SCH (09:29)
[2018-04-26] MEDS: Famotidine 20 MG TAB PO SCH ×2 (09:29→19:22)
[2018-04-26] MEDS: Enoxaparin Sodium 40 MG/0.4 ML SYRINGE SC SCH (09:29)
[2018-04-26] MEDS: Folic Acid 1 MG TAB PO SCH (09:29)
[2018-04-26] MEDS: Terazosin HCl 1 MG CAP PO SCH ×2 (09:29→17:30)
[2018-04-26] MEDS: Cyanocobalamin (Vitamin B-12) 1,000 MCG TAB PO SCH (09:29)
[2018-04-26] MEDS: Brimonidine Tartrate 0.2% Ophth Soln 5 ml Bottle EA EYE SCH ×2 (09:30→19:22)
[2018-04-26] MEDS: prednisoLONE 1% Ophth Susp 5 ml Bottle EA EYE SCH ×2 (09:30→19:23)
[2018-04-26] MEDS: Timolol 0.5% Ophth Soln 5 ml Bottle EA EYE SCH ×2 (09:30→19:23)
[2018-04-26] MEDS: Sodium Chloride 0.9% 1,000 ML IV SCH ×2 (09:31→23:29)
--- NOTE | 2018-04-26 10:14 | PDOC.PN ---
- Subjective Encounter Start Date: 04/26/18 Encounter Start Time: 08:30 -: non-verbal Patient seen and examined for decubitus ulcer No overnight events - Objective MAR Reviewed: Yes Vital Signs & Weight: Vital Signs (12 hours) Temp Pulse Resp BP BP BP BP 04/26/18 09:30 83 103/55 L 04/26/18 08:00 98.3 F 83 16 103/53 L 04/26/18 07:16 118/65 122/57 L 04/26/18 02:58 92 BP Pulse Ox 04/26/18 09:30 04/26/18 08:00 99 04/26/18 07:16 04/26/18 02:58 177/81 H Weight Admit Weight 106 lb 8 oz Weight 106 lb 8 oz I&O: 04/25/18 04/26/18 04/27/18 06:59 06:59 06:59 Intake Total 2840 2520 Balance 2840 2520 Result Diagrams: 04/25/18 10:10 04/25/18 10:10 Phys Exam - Physical Examination Constitutional: NAD HEENT: PERRLA, moist MMs, sclera anicteric Neck: no JVD, supple Respiratory: no wheezing, no rales, no rhonchi Cardiovascular: RRR, no significant murmur, no rub Gastrointestinal: soft, non-tender, no distention, positive bowel sounds Musculoskeletal: no edema, pulses present pressure ulcer with dressing Lymphatic: no nodes Skin: normal turgor Dx/Plan (1) Hypokalemia Code(s): E87.6 - HYPOKALEMIA Status: Acute (2) Dementia Code(s): F03.90 - UNSPECIFIED DEMENTIA WITHOUT BEHAVIORAL DISTURBANCE Status: Chronic Qualifiers: Dementia type: unspecified type Dementia behavioral disturbance: without behavioral disturbance Qualified Code(s): F03.90 - Unspecified dementia without behavioral disturbance (3) 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 (4) Hypertension Code(s): I10 - ESSENTIAL (PRIMARY) HYPERTENSION Status: Chronic Qualifiers: Hypertension type: essential hypertension Qualified Code(s): I10 - Essential (primary) hypertension (5) Macrocytic anemia Code(s): D53.9 - NUTRITIONAL ANEMIA, UNSPECIFIED Status: Chronic (6) Moderate protein-calorie malnutrition Code(s): E44.0 - MODERATE PROTEIN-CALORIE MALNUTRITION Status: Chronic (7) Pressure ulcer of hip, left, unstageable Code(s): L89.220 - PRESSURE ULCER OF LEFT HIP, UNSTAGEABLE Status: Chronic (8) Pressure ulcer of hip, right, unstageable Code(s): L89.210 - PRESSURE ULCER OF RIGHT HIP, UNSTAGEABLE Status: Chronic - Plan cont current plan of care, continue antibiotics, social psychologist * medication reviewed as below * symptomatic treatment * wound care * continue iv antibiotics * expecting discharge tomorrow to [facility]. Review of Systems - Review of Systems Other: unable to review due to non verbal status - Medications/Allergies Allergies/Adverse Reactions: Allergies Allergy/AdvReac Type Severity Reaction Status Date / Time No Known Drug Allergies Allergy Verified 07/12/14 21:15 Medications: Current Medications Acetaminophen (Tylenol) 650 mg PO Q4H PRN PRN Reason: Headache/Fever or Pain Hydrocodone Bitart/Acetaminophen ([place] 5/325) 1 tab PO Q4H PRN PRN Reason: Moderate Pain (4-6) Last Admin: 04/24/18 10:15 Dose: 1 tab Al Hydroxide/Mg Hydroxide (Maalox) 30 ml PO Q6H PRN PRN Reason: Heartburn or Indigestion Artificial Tears (Tears Naturale) 0 drop EA EYE PRN PRN PRN Reason: Dry Eyes Bisacodyl (Dulcolax) 10 mg PO DAILYPRN PRN PRN Reason: Constipation Brimonidine Tartrate (Alph[place] 0.2% Ophth Soln) 1 drop EA EYE BID [facility] Last Admin: 04/26/18 09:30 Dose: 1 drop Cyanocobalamin (Vitamin B-12) 1,000 mcg PO DAILY [facility] Last Admin: 04/26/18 09:29 Dose: 1,000 mcg Enoxaparin Sodium (Lovenox) 40 mg SC 0900 [facility] Last Admin: 04/26/18 09:29 Dose: 40 mg Famotidine (Pepcid) 20 mg PO BID [facility] Last Admin: 04/26/18 09:29 Dose: 20 mg Folic Acid (Folvite) 1 mg PO DAILY [facility] Last Admin: 04/26/18 09:29 Dose: 1 mg Guaifenesin (Robitussin Sf) 200 mg PO Q4H PRN PRN Reason: Cough Hydralazine HCl (Apresoline) 10 mg SLOW IVP Q4H PRN PRN Reason: Systolic BP > 180 Sodium Chloride (Normal Saline 0.9%) 1,000 mls @ 70 mls/hr IV .[id number] [facility] Last Admin: 04/26/18 09:31 Dose: Not Given Piperacillin Sod/Tazobactam (Sod 2.25 gm/ Sodium Chloride) 100 mls @ 200 mls/ hr IVPB Q6HR [facility] Last Admin: 04/26/18 04:45 Dose: 100 mls Vancomycin HCl 1.25 gm/ Sodium (Chloride) 250 mls @ 166.667 mls/hr IVPB 1200 [facility] Last Admin: 04/25/18 13:01 Dose: 250 mls Lactulose (Lactulose) 20 gm PO DAILYPRN PRN PRN Reason: Constipation Loperamide HCl (Imodium) 2 mg PO PRN PRN PRN Reason: Diarrhea/Loose Stools Loratadine (Claritin) 10 mg PO DAILYPRN PRN PRN Reason: Sinus Symptoms Magnesium Hydroxide (Milk Of Magnesium) 30 ml PO DAILYPRN PRN PRN Reason: Constipation Mineral Oil/White Petrolatum (Eucerin Cream) 0 gm TOP BIDPRN PRN PRN Reason: Dry Skin Miscellaneous Medication (Pharmacy To Dose) 1 each IVPB DAILYPRN PRN PRN Reason: LABS Ondansetron HCl (Zofran Odt) 4 mg PO Q6H PRN PRN Reason: Nausea/Vomiting Ondansetron HCl (Zofran) 4 mg IVP Q6H PRN PRN Reason: /Vomiting Phenol (Chloraseptic [place] 180 Ml Bot) 0 ml PO PRN PRN PRN Reason: Sore Throat Prednisolone Acetate (Econopred Plus 1% Opth Susp) 1 drop EA EYE BID [facility] Last Admin: 04/26/18 09:30 Dose: 1 drp Saccharomyces Boulardii (Florastor) 250 mg PO DAILY [facility] Last Admin: 04/26/18 09:29 Dose: 250 mg Sodium Chloride ([place] Nasal [place] 0.65%) 0 ml EA NARE QIDPRN PRN PRN Reason: Nasal Congestion Temazepam (Restoril) 15 mg PO HSPRN PRN PRN Reason: Insomnia Terazosin HCl (Hytrin) 2 mg PO BID-[facility] Last Admin: 04/26/18 09:29 Dose: 2 mg Timolol Maleate (Timoptic 0.5% Oph Soln) 1 drop EA EYE BID [facility] Last Admin: 04/26/18 09:30 Dose: 1 drop
[2018-04-26] MEDS: Vancomycin HCl 1.25 GM in Sodium Chloride 0.9% 250 ML 250 ML IVPB SCH (12:51)
[2018-04-27] MEDS: Piperacillin/Tazobactam 2.25 GM in Sodium Chloride 0.9% 100 ML IVPB SCH ×2 (05:06→12:19)
[2018-04-27 07:57] VITALS: BP 132/78; TEMP 96.9
[2018-04-27] MEDS: Folic Acid 1 MG TAB PO SCH (08:57)
[2018-04-27] MEDS: Brimonidine Tartrate 0.2% Ophth Soln 5 ml Bottle EA EYE SCH (08:57)
[2018-04-27] MEDS: Famotidine 20 MG TAB PO SCH (08:57)
[2018-04-27] MEDS: Saccharomyces boulardii 250 MG CAP PO SCH (08:57)
[2018-04-27] MEDS: Cyanocobalamin (Vitamin B-12) 1,000 MCG TAB PO SCH (08:57)
[2018-04-27] MEDS: Terazosin HCl 1 MG CAP PO SCH (08:57)
[2018-04-27] MEDS: Enoxaparin Sodium 40 MG/0.4 ML SYRINGE SC SCH (09:00)
[2018-04-27] MEDS: Timolol 0.5% Ophth Soln 5 ml Bottle EA EYE SCH (09:00)
[2018-04-27] MEDS: prednisoLONE 1% Ophth Susp 5 ml Bottle EA EYE SCH (09:00)
--- NOTE | 2018-04-27 10:18 | DIS ---
DATE OF ADMISSION: 04/22/2018 DATE OF DISCHARGE: 04/27/2018 PRIMARY CARE PHYSICIAN: Javon Evans. DISCHARGE DISPOSITION: nursing home home, [facility]. PRIMARY DISCHARGE DIAGNOSES: Pressure ulcer of the left and right hip as well as sacral present on a dmission, unstageable, hypokalemia corrected. SECONDARY DISCHARGE DIAGNOSES: Dementia, failure to thrive in adult, hypertension, macrocytic anemia , moderate protein calorie malnutrition. PRIMARY PROCEDURE/OPERATION: None. RADIOLOGICAL INVESTIGATION: Lumbar spine x-ray showed prostatectomy, lymph node dissection and degen erative changes. Pelvis CT scan showed osteoporosis, osteoarthritis, fecal distention of rectum with wall thickening and pneumatosis. Pelvis x-ray. SIGNIFICANT LABORATORY DATA: WBC 7.9, hemoglobin 9.8, platelet 236, MCV 104. Sodium 143, potassium 3.7, BUN 15, creatinine 0.54, calcium 8.5, CRP 13.20. LFT normal. Blood culture negative. Wound cu lture grew MRSA. DISCHARGE MEDICATIONS: Alphagan ophthalmic drops b.i.d., vitamin B12 1000 mcg p.o. daily, doxycyclin e 100 mg p.o. b.i.d. for 15 days, Pepcid 20 mg p.o. b.i.d., folic acid 1 mg p.o. daily, levobunolol 1 drop each eye b.i.d., Econopred 1 drop each eye b.i.d., Florastor 250 mg p.o. daily, Hytrin 2 mg p.o . b.i.d., MiraLax 17 grams p.o. daily. CONTRAINDICATIONS: None. CODE STATUS: DNR. INPATIENT CONSULTANTS: None. ALLERGIES: No known drug allergies. DISCHARGE PLAN: Post hospital, patient will follow up with primary care physician. The patient will need wound care special mattress, nutritional support. HOSPITAL COURSE: An 87-year-old male who was admitted by Dr. Rutherford on 04/20/2018. The patient was found with infected decubitus ulcer, decubitus ulcer was unstageable and it was present on admission, it was getting worse. This patient is nonverbal and he is bedbound status. His nutritional status was also very poor. He has advanced dementia. While in hospital, we gave him IV antibiotic therapy for wound infection. We treated him with vancomycin and Zosyn. His wound culture grew MRSA. At naseem t point, we did change antibiotic to doxycycline. 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 The patient was also hydra kirk with IV fluid. We continued all his home medication including ophthalmic drops, which was contin ued upon discharge as well. The patient is given vitamin B12, folic acid for microcytic anemia. The patient was from home and now patient requires aggressive wound care and that is why we are sendi ng him to detention home. With help of correctional counselor/case manager, we arranged detention home. The patient is seen and examined at bedside today. The patient is nonverbal and review of systems is not possible. PHYSICAL EXAMINATION: VITAL SIGNS: Currently, temperature 96.9, pulse 76, blood pressure 132/78, saturation 95% on room ai r, respiratory rate 16, blood pressure 132/78, weight 106 pounds. GENERAL: The patient is currently alert, awake, arousable, no acute distress. HEAD: Normocephalic, atraumatic. EYES: Pupils round and reactive to light. Extraocular muscle intact. ENT: Oropharynx within normal limits. Dry mucous membranes, no oral lesion, no pharyngeal erythema, no exudate. NECK: Supple, no JVD, no thyromegaly, no carotid bruit. LUNGS: Clear. CARDIAC: S1, S2 regular. No murmur. ABDOMEN: Soft, benign. EXTREMITIES: No edema. NEUROLOGIC: Unable to assess. Patient does have a wound covered with a dressing. Paperwork for discharge done. Discharge medication reconciliation done. Total time spent on discharge day 31 minutes.
[2018-04-27] MEDS: Vancomycin HCl 1.25 GM in Sodium Chloride 0.9% 250 ML 250 ML IVPB SCH (13:00)
[2018-04-27 14:03] LABS: Vancomycin, Trough 12.1 ug/mL
== END 2018-04-27 14:48 | DRG 592 ==
LOC: ERS 17:29 → T4-A 21:45 → OBSVTOIN 04-22 12:19
PROVIDERS: ADMIT Internal Medicine; ATTEND Internal Medicine
DX: L89.220 Pressure ulcer of left hip, unstageable (principal); G93.40 Encephalopathy, unspecified; R64 Cachexia; Z68.1 Body mass index [BMI] 19.9 or less, adult; E44.0 Moderate protein-calorie malnutrition; L89.210 Pressure ulcer of right hip, unstageable; L89.159 Pressure ulcer of sacral region, unspecified stage; L89.629 Pressure ulcer of left heel, unspecified stage; L89.619 Pressure ulcer of right heel, unspecified stage; I10 Essential (primary) hypertension; M81.0 Age-related osteoporosis without current pathological fracture; M19.90 Unspecified osteoarthritis, unspecified site; F03.90 Unspecified dementia, unspecified severity, without behavioral disturbance, psychotic disturbance, mood disturbance, and anxiety; B95.62 Methicillin resistant Staphylococcus aureus infection as the cause of diseases classified elsewhere; H54.7 Unspecified visual loss; E87.6 Hypokalemia; Z66 Do not resuscitate; Z85.46 Personal history of malignant neoplasm of prostate; Z87.891 Personal history of nicotine dependence
CPT/HCPCS: 36415; 51701; 72100; 72190; 72192; 80048; 80053; 80202; 81003; 81015; 83605; 83735; 84134; 85025; 86140; 87040; 87070; 87077; 87186; 87205; 96365; 96375; G8978-GP-CN; G8979-GP-CN; G8980-GP-CN; G8987-GO-CN; G8988-GO-CN; G8989-GO-CN; J1650; J2543; J3370; J7050